=== PATIENT | female | born 1985 | race Caucasian/White ===

== ENCOUNTER 2025-07-01 17:48 | Inpatient (IN) | payer OTHER, SELFPAY ==
[~2025-07-01 17:48] MED LIST: Iopamidol-370 76% 500 ML MDV (1 ML CHARGE) ONE
[2025-07-01 19:06] LABS: #Basophils 0.05 10x3/uL (0.0-0.2); #Eosinophils 0.18 10x3/uL (0.0-0.7); #Monocytes 1.94 10x3/uL (0.11-0.59); #Neutrophils 15.53 10x3/uL (1.40-6.50); %Basophils 0.2 % (0.0-1.0); %Eosinophils 0.9 % (0.0-10.0); %Lymphocytes 14.5 % (21.0-51.0); %Monocytes 9.3 % (0.0-10.0); %Neutrophils 74.0 % (42.0-75.0); Hematocrit 18.6 % (36.0-47.0); Hemoglobin 6.3 g/dL (12.0-16.0); Mean Corpuscular Hemoglobin 38.9 pg (27.0-31.0); Mean Corpuscular Volume 114.8 fL (78.0-98.0); Platelet Count 225 10x3/uL (130-400); Red Blood Cell (RBC) Count 1.62 mill/uL (4.20-5.40); White Blood Cell (WBC) Count 20.96 10x3/uL (4.8-10.8)
[2025-07-01 19:19] LABS: ALT (SGPT) 36 U/L (Less than 34); AST (SGOT) 168 U/L (11-34); Albumin 2.3 g/dL (3.1-4.5); Alkaline Phosphatase 122 U/L (40-110); Anion Gap 17 mmol/L (10-20); BUN (Urea Nitrogen) 20 mg/dL (7.0-18.7); Bilirubin, Total 11.2 mg/dL (0.3-1.2); Calc. Creatinine Clearance 0 mL/min (70-130); Calcium 8.6 mg/dL (7.8-10.44); Carbon Dioxide 26 mmol/L (22-29); Chloride 92 mmol/L (98-107); Globulin 4.3 g/dL (2.4-3.5); Glucose 116 mg/dL (70-105); Lipase 27 U/L (8-78); Potassium 3.6 mmol/L (3.5-5.1); Sodium 131 mmol/L (136-145)
[2025-07-01 19:31] LABS: Anisocytosis SLIGHT = 6-15 cells (100X) (0-5/hpf); Poikilocytosis SLIGHT = 6-15 cells (100X) (0-5/hpf); Spherocytes SLIGHT = 1-5 cells (100X) (None Seen); Target Cells SLIGHT = 2-5 cells (100X) (0-1/hpf)
[2025-07-01 19:33] LABS: Platelet Adequacy Comment Platelets Normal
[2025-07-01 20:15] LABS: INR-International Normal Ratio 1.4; PTT 39.3 sec (22.9-36.1); Prothrombin Time 17.5 sec (12.0-14.7)
[2025-07-01 20:20] LABS: BHCG - Serum Negative (NEGATIVE); Pregs Control Background? CLEAR/WHITE (CLR/WHITE); Pregs Control Bar Appear? YES (CONTROL BAR)
[2025-07-01] MEDS ORDERED: Gabapentin 400 MG CAP ONE (21:01)
[2025-07-01] MEDS ORDERED: cefTRIAXone (ROCEPHIN) 1 GM VIAL ONE (21:01)
[2025-07-01] MEDS ORDERED: Ondansetron PF 4 MG/2 ML Vial IVP PRN (23:52)
[2025-07-01] MEDS ORDERED: Acetaminophen 325 MG TAB PO PRN (23:52)
[2025-07-02 00:14] LABS: Iron 135 ug/dL (50-170); Iron Binding Capacity, Total 135 mcg/dL (265-497); Transferrin, Serum 108 mg/dL (180-382)
[2025-07-02] MEDS: Multivitamins, Adult 10 ML, Thiamine HCl 100 MG, Folic Acid 1 MG in Dextrose 5 %-0.45 %... IV SCH (01:50)
[2025-07-02 02:06] LABS: Vitamin B12 660.0 pg/mL (211-911)
[2025-07-02] MEDS ORDERED: Gabapentin 400 MG CAP ONE (02:42)
[2025-07-02] MEDS ORDERED: Folic Acid 1 MG TAB ONE (02:45)
[2025-07-02] MEDS: Folic Acid 1 MG TAB PO SCH (03:00)
[2025-07-02] MEDS: Gabapentin 400 MG CAP PO SCH ×3 (04:09→18:42)
[2025-07-02 04:53] VITALS: BMI 38.7
[2025-07-02 05:14] LABS: #Basophils 0.04 10x3/uL (0.0-0.2); #Eosinophils 0.19 10x3/uL (0.0-0.7); #Monocytes 1.91 10x3/uL (0.11-0.59); #Neutrophils 13.68 10x3/uL (1.40-6.50); %Basophils 0.2 % (0.0-1.0); %Eosinophils 1.0 % (0.0-10.0); %Lymphocytes 14.2 % (21.0-51.0); %Monocytes 10.2 % (0.0-10.0); %Neutrophils 73.4 % (42.0-75.0); Hematocrit 21.1 % (36.0-47.0); Hemoglobin 7.2 g/dL (12.0-16.0); Mean Corpuscular Hemoglobin 36.5 pg (27.0-31.0); Mean Corpuscular Volume 107.1 fL (78.0-98.0); Platelet Count 200 10x3/uL (130-400); Red Blood Cell (RBC) Count 1.97 mill/uL (4.20-5.40); White Blood Cell (WBC) Count 18.64 10x3/uL (4.8-10.8)
[2025-07-02 05:23] LABS: ALT (SGPT) 32 U/L (Less than 34); AST (SGOT) 155 U/L (11-34); Albumin 2.0 g/dL (3.1-4.5); Alkaline Phosphatase 108 U/L (40-110); Anion Gap 13 mmol/L (10-20); BUN (Urea Nitrogen) 19 mg/dL (7.0-18.7); Bilirubin, Total 12.2 mg/dL (0.3-1.2); Calc. Creatinine Clearance 187 mL/min (70-130); Calcium 8.5 mg/dL (7.8-10.44); Carbon Dioxide 28 mmol/L (22-29); Chloride 94 mmol/L (98-107); Globulin 4.3 g/dL (2.4-3.5); Glucose 118 mg/dL (70-105); Potassium 3.5 mmol/L (3.5-5.1); Sodium 131 mmol/L (136-145)
[2025-07-02 05:32] LABS: INR-International Normal Ratio 1.5; PTT 44.9 sec (22.9-36.1); Prothrombin Time 18.1 sec (12.0-14.7)
[2025-07-02 05:45] LABS: Hep A IgM AB NONREACTIVE (NonReactive); Hep A IgM S/CO 0.34 S/CO (0-0.79); Hep B Core IgM Index 0.14 S/CO (0-0.79); Hep B Surf Ag NONREACTIVE S/CO (NonReactive); Hep C IgG Ab NONREACTIVE S/CO (NonReactive); Hep C Index 0.15 S/CO (0-0.79)
[2025-07-02] MEDS: Furosemide 20 MG (2 mL) VIAL SLOW IVP SCH (09:42)
[2025-07-02 10:59] LABS: Glucose, Urine (Dipstick) Negative (Negative); Leukocyte Negative (Negative); Protein, Urine (Dipstick) Negative (Neg-Trace); Specific Gravity, Urine 1.010 (1.005-1.030)
[2025-07-02 11:07] LABS: CAUTI Indications for Culture Dysuria,urgency,freq; RBC/HPF 0-3 HPF (0-3)
[2025-07-02 11:19] LABS: Bacteria/HPF 1+ HPF (None Seen)
[2025-07-02 11:21] LABS: Urine Culture Reflex No No
[2025-07-02] MEDS ORDERED: Non-Formulary Item 1 EACH (Gabapentin [Gabapentin] 800 MG Tablet) PO SCH (13:00)
[2025-07-03] MEDS: Albumin 25% 25 GM (100 mL) BOT IVPB SCH (01:13)
[2025-07-03 04:48] LABS: #Basophils 0.03 10x3/uL (0.0-0.2); #Eosinophils 0.19 10x3/uL (0.0-0.7); #Monocytes 1.78 10x3/uL (0.11-0.59); #Neutrophils 11.81 10x3/uL (1.40-6.50); %Basophils 0.2 % (0.0-1.0); %Eosinophils 1.1 % (0.0-10.0); %Lymphocytes 17.4 % (21.0-51.0); %Monocytes 10.5 % (0.0-10.0); %Neutrophils 69.7 % (42.0-75.0); Hematocrit 18.9 % (36.0-47.0); Hemoglobin 6.2 g/dL (12.0-16.0); Mean Corpuscular Hemoglobin 35.6 pg (27.0-31.0); Mean Corpuscular Volume 108.6 fL (78.0-98.0); Platelet Count 176 10x3/uL (130-400); Red Blood Cell (RBC) Count 1.74 mill/uL (4.20-5.40); White Blood Cell (WBC) Count 16.95 10x3/uL (4.8-10.8)
[2025-07-03 04:56] LABS: ALT (SGPT) 28 U/L (Less than 34); AST (SGOT) 146 U/L (11-34); Albumin 2.2 g/dL (3.1-4.5); Alkaline Phosphatase 92 U/L (40-110); Anion Gap 15 mmol/L (10-20); BUN (Urea Nitrogen) 18 mg/dL (7.0-18.7); Bilirubin, Total 11.0 mg/dL (0.3-1.2); Calc. Creatinine Clearance 168 mL/min (70-130); Calcium 8.3 mg/dL (7.8-10.44); Carbon Dioxide 26 mmol/L (22-29); Chloride 93 mmol/L (98-107); Globulin 3.8 g/dL (2.4-3.5); Glucose 115 mg/dL (70-105); Potassium 3.2 mmol/L (3.5-5.1); Sodium 131 mmol/L (136-145)
[2025-07-03 05:04] LABS: INR-International Normal Ratio 1.6; PTT 45.4 sec (22.9-36.1); Prothrombin Time 19.1 sec (12.0-14.7)
[2025-07-03] MEDS ORDERED: Non-Formulary Item 1 EACH (Cholecalciferol (Vitamin D3) [Vitamin D3] 5,000 UNITS Capsule) PO SCH (09:00)
[2025-07-03] MEDS ORDERED: Thiamine 100 MG TAB PO SCH (09:00)
[2025-07-03] MEDS: Folic Acid 1 MG TAB PO SCH (09:46)
[2025-07-03] MEDS: Multivitamin W/ Minerals 1 TAB PO SCH (09:46)
[2025-07-03] MEDS: Cholecalciferol 1,000 UNITS (25 MCG) TAB PO SCH (09:46)
[2025-07-03] MEDS: Thiamine 100 MG TAB PO SCH (09:46)
[2025-07-03 11:50] LABS: ANA Symphony (Qualitative) Negative (Negative); ANA Symphony (Quantitative) 0.4 Ratio (< 0.7 Negative); Mitochondrial Ab 1.2 U/mL (<4 Negative); dsDNA IgG Antibody 1.7 IU/mL (<10 Negative)
[2025-07-03 11:51] LABS: EliA Vaculitis New Method **** NEW METHOD ****
[2025-07-03] MEDS: prednisoLONE 15 MG/5 ML UDCUP PO SCH (14:00)
[2025-07-03] MEDS: Spironolactone 25 MG TAB PO SCH ×2 (16:50→16:51)
[2025-07-03] MEDS: Furosemide 20 MG TAB PO SCH (16:51)
[2025-07-03 18:52] LABS: Hematocrit 22.6 % (36.0-47.0); Hemoglobin 7.7 g/dL (12.0-16.0)
[2025-07-04 05:24] LABS: #Basophils Less than 0.03 10x3/uL (0.0-0.2); #Eosinophils Less than 0.03 10x3/uL (0.0-0.7); #Monocytes 1.11 10x3/uL (0.11-0.59); #Neutrophils 15.82 10x3/uL (1.40-6.50); %Basophils 0.1 % (0.0-1.0); %Eosinophils 0.0 % (0.0-10.0); %Lymphocytes 7.4 % (21.0-51.0); %Monocytes 6.0 % (0.0-10.0); %Neutrophils 85.3 % (42.0-75.0); Hematocrit 22.0 % (36.0-47.0); Hemoglobin 7.7 g/dL (12.0-16.0); Mean Corpuscular Hemoglobin 36.0 pg (27.0-31.0); Mean Corpuscular Volume 102.8 fL (78.0-98.0); Platelet Count 164 10x3/uL (130-400); Red Blood Cell (RBC) Count 2.14 mill/uL (4.20-5.40); White Blood Cell (WBC) Count 18.54 10x3/uL (4.8-10.8)
[2025-07-04 05:43] LABS: ALT (SGPT) 26 U/L (Less than 34); AST (SGOT) 125 U/L (11-34); Albumin 2.8 g/dL (3.1-4.5); Alkaline Phosphatase 93 U/L (40-110); Anion Gap 14 mmol/L (10-20); BUN (Urea Nitrogen) 19 mg/dL (7.0-18.7); Bilirubin, Total 12.2 mg/dL (0.3-1.2); Calc. Creatinine Clearance 135 mL/min (70-130); Calcium 8.5 mg/dL (7.8-10.44); Carbon Dioxide 26 mmol/L (22-29); Chloride 94 mmol/L (98-107); Globulin 3.6 g/dL (2.4-3.5); Glucose 155 mg/dL (70-105); Potassium 3.7 mmol/L (3.5-5.1); Sodium 130 mmol/L (136-145)
[2025-07-04] MEDS: prednisoLONE 15 MG/5 ML UDCUP PO SCH (10:35)
[2025-07-04] MEDS: Nystatin Powder 15 GM BOT TOP PRN (11:30)
[2025-07-05 05:12] LABS: #Basophils 0.03 10x3/uL (0.0-0.2); #Eosinophils 0.04 10x3/uL (0.0-0.7); #Monocytes 1.51 10x3/uL (0.11-0.59); #Neutrophils 16.22 10x3/uL (1.40-6.50); %Basophils 0.2 % (0.0-1.0); %Eosinophils 0.2 % (0.0-10.0); %Lymphocytes 8.7 % (21.0-51.0); %Monocytes 7.6 % (0.0-10.0); %Neutrophils 81.7 % (42.0-75.0); Hematocrit 22.1 % (36.0-47.0); Hemoglobin 7.5 g/dL (12.0-16.0); Mean Corpuscular Hemoglobin 35.2 pg (27.0-31.0); Mean Corpuscular Volume 103.8 fL (78.0-98.0); Platelet Count 162 10x3/uL (130-400); Red Blood Cell (RBC) Count 2.13 mill/uL (4.20-5.40); White Blood Cell (WBC) Count 19.83 10x3/uL (4.8-10.8)
[2025-07-05 05:37] LABS: ALT (SGPT) 25 U/L (Less than 34); AST (SGOT) 112 U/L (11-34); Albumin 2.7 g/dL (3.1-4.5); Alkaline Phosphatase 115 U/L (40-110); Anion Gap 12 mmol/L (10-20); BUN (Urea Nitrogen) 26 mg/dL (7.0-18.7); Bilirubin, Total 9.6 mg/dL (0.3-1.2); Calc. Creatinine Clearance 123 mL/min (70-130); Calcium 8.7 mg/dL (7.8-10.44); Carbon Dioxide 26 mmol/L (22-29); Chloride 95 mmol/L (98-107); Globulin 3.9 g/dL (2.4-3.5); Glucose 135 mg/dL (70-105); Potassium 3.6 mmol/L (3.5-5.1); Sodium 129 mmol/L (136-145)
[2025-07-05 10:44] LABS: Osmolality, Serum 281 mOsm/kg (275-295)
[2025-07-05 11:41] LABS: Smooth Muscle Total ABS 6.0 Units (0-19)
[2025-07-05 18:37] LABS: Osmolality, Urine 420 mOsm/kg (50-1200)
[2025-07-06 05:03] LABS: #Basophils 0.03 10x3/uL (0.0-0.2); #Eosinophils 0.03 10x3/uL (0.0-0.7); #Monocytes 1.45 10x3/uL (0.11-0.59); #Neutrophils 15.72 10x3/uL (1.40-6.50); %Basophils 0.2 % (0.0-1.0); %Eosinophils 0.2 % (0.0-10.0); %Lymphocytes 9.6 % (21.0-51.0); %Monocytes 7.5 % (0.0-10.0); %Neutrophils 81.3 % (42.0-75.0); Hematocrit 21.6 % (36.0-47.0); Hemoglobin 7.3 g/dL (12.0-16.0); Mean Corpuscular Hemoglobin 35.6 pg (27.0-31.0); Mean Corpuscular Volume 105.4 fL (78.0-98.0); Platelet Count 162 10x3/uL (130-400); Red Blood Cell (RBC) Count 2.05 mill/uL (4.20-5.40); White Blood Cell (WBC) Count 19.33 10x3/uL (4.8-10.8)
[2025-07-06 05:44] LABS: ALT (SGPT) 29 U/L (Less than 34); AST (SGOT) 119 U/L (11-34); Albumin 2.6 g/dL (3.1-4.5); Alkaline Phosphatase 111 U/L (40-110); Anion Gap 11 mmol/L (10-20); BUN (Urea Nitrogen) 31 mg/dL (7.0-18.7); Bilirubin, Total 8.1 mg/dL (0.3-1.2); Calc. Creatinine Clearance 113 mL/min (70-130); Calcium 8.7 mg/dL (7.8-10.44); Carbon Dioxide 25 mmol/L (22-29); Chloride 98 mmol/L (98-107); Globulin 4.0 g/dL (2.4-3.5); Glucose 129 mg/dL (70-105); Potassium 3.8 mmol/L (3.5-5.1); Sodium 130 mmol/L (136-145)
[2025-07-06] MEDS: Spironolactone 25 MG TAB PO SCH (11:31)
[2025-07-07 05:43] LABS: ALT (SGPT) 33 U/L (Less than 34); AST (SGOT) 147 U/L (11-34); Albumin 2.6 g/dL (3.1-4.5); Alkaline Phosphatase 124 U/L (40-110); Anion Gap 12 mmol/L (10-20); BUN (Urea Nitrogen) 32 mg/dL (7.0-18.7); Bilirubin, Total 6.9 mg/dL (0.3-1.2); Calc. Creatinine Clearance 116 mL/min (70-130); Calcium 8.8 mg/dL (7.8-10.44); Carbon Dioxide 25 mmol/L (22-29); Chloride 99 mmol/L (98-107); Globulin 4.0 g/dL (2.4-3.5); Glucose 134 mg/dL (70-105); Potassium 4.0 mmol/L (3.5-5.1); Sodium 132 mmol/L (136-145)
[2025-07-07 05:53] LABS: #Basophils 0.03 10x3/uL (0.0-0.2); #Eosinophils 0.04 10x3/uL (0.0-0.7); #Monocytes 1.58 10x3/uL (0.11-0.59); #Neutrophils 15.47 10x3/uL (1.40-6.50); %Basophils 0.2 % (0.0-1.0); %Eosinophils 0.2 % (0.0-10.0); %Lymphocytes 8.9 % (21.0-51.0); %Monocytes 8.3 % (0.0-10.0); %Neutrophils 81.0 % (42.0-75.0); Hematocrit 22.9 % (36.0-47.0); Hemoglobin 7.3 g/dL (12.0-16.0); Mean Corpuscular Hemoglobin 35.3 pg (27.0-31.0); Mean Corpuscular Volume 110.6 fL (78.0-98.0); Platelet Count 157 10x3/uL (130-400); Red Blood Cell (RBC) Count 2.07 mill/uL (4.20-5.40); White Blood Cell (WBC) Count 19.08 10x3/uL (4.8-10.8)
[2025-07-07 22:25] LABS: Magnesium 1.9 mg/dL (1.6-2.6)
[2025-07-08 04:28] VITALS: TEMP 98.2
[2025-07-08 05:54] LABS: #Basophils 0.03 10x3/uL (0.0-0.2); #Eosinophils 0.09 10x3/uL (0.0-0.7); #Monocytes 1.60 10x3/uL (0.11-0.59); #Neutrophils 16.70 10x3/uL (1.40-6.50); %Basophils 0.1 % (0.0-1.0); %Eosinophils 0.4 % (0.0-10.0); %Lymphocytes 10.2 % (21.0-51.0); %Monocytes 7.7 % (0.0-10.0); %Neutrophils 80.2 % (42.0-75.0); Hematocrit 22.7 % (36.0-47.0); Hemoglobin 7.3 g/dL (12.0-16.0); Mean Corpuscular Hemoglobin 35.3 pg (27.0-31.0); Mean Corpuscular Volume 109.7 fL (78.0-98.0); Platelet Count 151 10x3/uL (130-400); Red Blood Cell (RBC) Count 2.07 mill/uL (4.20-5.40); White Blood Cell (WBC) Count 20.84 10x3/uL (4.8-10.8)
[2025-07-08 06:15] LABS: ALT (SGPT) 39 U/L (Less than 34); AST (SGOT) 159 U/L (11-34); Albumin 2.7 g/dL (3.1-4.5); Alkaline Phosphatase 128 U/L (40-110); Anion Gap 10 mmol/L (10-20); BUN (Urea Nitrogen) 37 mg/dL (7.0-18.7); Bilirubin, Total 6.6 mg/dL (0.3-1.2); Calc. Creatinine Clearance 142 mL/min (70-130); Calcium 9.0 mg/dL (7.8-10.44); Carbon Dioxide 28 mmol/L (22-29); Chloride 100 mmol/L (98-107); Globulin 4.1 g/dL (2.4-3.5); Glucose 123 mg/dL (70-105); Potassium 4.2 mmol/L (3.5-5.1); Sodium 134 mmol/L (136-145)
[2025-07-08] MEDS: Cephalexin 250 MG CAP PO SCH (08:45)
[2025-07-08 12:32] VITALS: BP 130/76
== END 2025-07-08 14:58 | disposition home or self-care (01) | DRG 433 ==
LOC: ERS 17:48 → ERHOLD 23:13 → OBS 07-02 03:47
PROVIDERS: ADMIT Internal Medicine; ATTEND Student in an Organized Health Care Education/Training Program
PROC: 30233N1 Transfusion of Nonautologous Red Blood Cells into Peripheral Vein, Percutaneous Approach (ICD-10-PCS; 2025-07-01)
PROC: 30233J1 Transfusion of Nonautologous Serum Albumin into Peripheral Vein, Percutaneous Approach (ICD-10-PCS; principal; 2025-07-02)
PROC: 3E03329 Introduction of Other Anti-infective into Peripheral Vein, Percutaneous Approach (ICD-10-PCS; 2025-07-02)
DX: K70.10 Alcoholic hepatitis without ascites (principal); E46 Unspecified protein-calorie malnutrition; K80.00 Calculus of gallbladder with acute cholecystitis without obstruction; K76.6 Portal hypertension; G61.0 Guillain-Barre syndrome; N17.9 Acute kidney failure, unspecified; K70.30 Alcoholic cirrhosis of liver without ascites; K70.2 Alcoholic fibrosis and sclerosis of liver; I10 Essential (primary) hypertension; F32.A Depression, unspecified; Z83.3 Family history of diabetes mellitus; R79.89 Other specified abnormal findings of blood chemistry; E80.6 Other disorders of bilirubin metabolism; F10.20 Alcohol dependence, uncomplicated; K70.0 Alcoholic fatty liver; D53.9 Nutritional anemia, unspecified; E88.09 Other disorders of plasma-protein metabolism, not elsewhere classified
CPT/HCPCS: 36415; 36430; 71045; 74177; 76705; 80053; 80074; 80307; 81001; 81256; 82103; 82105; 82274; 82390; 82607; 82728; 83010; 83516; 83540; 83550; 83605; 83615; 83690; 83735; 83880; 83930; 83935; 84145; 84300; 84466; 84484; 84703; 85025; 85610; 85730; 86015; 86038; 86225; 86706; 86708; 86850; 86900; 86901; 87040; 93005; 96365; 96366; J0132; J0696; J1940; J2543; J3411; J7042; J7070; J7510; P9016; P9047; Q9967